=== PATIENT | female | born 1970 | race Caucasian/White ===

== ENCOUNTER 2017-09-14 07:06 | Outpatient (CLI) | payer BC ==
[2017-09-14 08:02] LABS: eGFR (African) > 60; eGFR (Non-African) > 60
== END 2017-09-14 07:07 ==
LOC: LAB 07:06
PROVIDERS: ATTEND Physician Assistant
DX: Z00.00 Encounter for general adult medical examination without abnormal findings (principal); Z13.6 Encounter for screening for cardiovascular disorders
CPT/HCPCS: 36415; 80053; 80061